=== PATIENT | female | born 1955 | race Caucasian/White ===

== ENCOUNTER 2024-06-13 04:03 | Emergency (ER) | payer MEDICARE ==
[~2024-06-13] VITALS: Ht 167.6 cm; Wt 97.5 kg
[~2024-06-13 04:03] MED LIST: ASPIRIN325 MG PO; CELEBREX200 MG PO; COZAAR25 MG PO; ESTRACE1 MG PO; GABAPENTIN400 M2 PO; LORTAB 5/3255 MG PO; MAXZIDE-25MG1 COMBO PO; MECLIZINE25 MG PO; OMEPRAZOLE DR40 MG PO
[2024-06-13 04:28] VITALS: BP 138/70
[2024-06-13 04:30] VITALS: BP 160/79
[2024-06-13] MEDS ORDERED: PROMETHAZINE HCL 25 MG/TAB PO ONE (04:35)
[2024-06-13] MEDS ORDERED: ISOVUE-300 (Iopamidol) 100 ML SDV IV ONE (04:35)
[2024-06-13] MEDS ORDERED: SODIUM CHLORIDE 0.9% 1,000 ML IV ONE (04:50)
[2024-06-13 04:53] LABS: BASO% 0.3 % (0-3); EOS% 1.9 % (0-8); HEMOGLOBIN 14.2 g/dl (12.0-16.0); LYMPH% 8.5 % (15-41); MEAN CELL VOLUME 87.3 fL CALC (80.0-100.0); MEAN CORPUSCULAR HGB 28.2 pG CALC (26.0-32.0); MEAN CORPUSCULAR HGB CONC 32.3 g/dL CAL (32.0-36.0); MONO% 5.9 % (2-13); NEUT# 10.32 thou/uL (2.00-7.15); NEUT% 82.4 % (42-76); RED BLOOD COUNT 5.04 mill/uL (4.20-5.60); RED CELL DISTRI WIDTH 13.5 % (11.5-15.5)
[2024-06-13 04:54] LABS: URINE BLOOD DIPSTICK Negative (NEGATIVE); URINE GLUCOSE - DIPSTICK 100 mg/dL (NEGATIVE); URINE KETONE Trace mg/dL (NEGATIVE); URINE LEUK ESTERASE Negative (NEGATIVE); URINE NITRITE - DIPSTICK Negative (Negative); URINE PH 5.5 (4.5-8.0); URINE PROTEIN - DIPSTICK 30 mg/dL (NEG-TRACE); URINE SPECIFIC GRAVITY >=1.030
[2024-06-13 04:55] LABS: URINE COLOR Dark yellow
[2024-06-13 05:00] VITALS: BP 138/68
[2024-06-13 05:02] LABS: URINE CALCIUM OXALATE CRYSTALS FEW lpf; URINE SQUAMOUS EPITHELIAL CELL MODERATE EPI/hpf (0-FEW); URINE WBC 0-2 WBC/hpf (0-5)
[2024-06-13 05:06] LABS: ALBUMIN 3.7 g/dL (3.2-5.0); CREATININE 0.7 mg/dL (0.5-1.0); POTASSIUM 3.8 mmol/l (3.5-5.1); TOTAL PROTEIN 6.7 g/dL (6.3-8.2)
[2024-06-13] MEDS ORDERED: ONDANSETRON HCl 4 MG/2 ML SDV IV ONE (05:15)
[2024-06-13] MEDS ORDERED: MORPHINE SULFATE 4 MG/ML VIAL IV ONE (05:15)
[2024-06-13 05:30] VITALS: BP 151/73
[2024-06-13 09:24] VITALS: BP 121/65
[2024-06-13 09:40] VITALS: BP 121/65
== END 2024-06-13 09:36 | disposition short-term general hospital (02) ==
LOC: ED 04:03
PROVIDERS: Family Medicine
DX: R10.84 Generalized abdominal pain (principal); R74.01 Elevation of levels of liver transaminase levels; E80.6 Other disorders of bilirubin metabolism; K80.20 Calculus of gallbladder without cholecystitis without obstruction; I10 Essential (primary) hypertension; Z87.891 Personal history of nicotine dependence
CPT/HCPCS: J2405; Q9967